=== PATIENT | female | born 1995 | race American Indian/Alaskan Native ===

== ENCOUNTER 2017-11-03 18:01 | Emergency (ER) | payer OTHER, MEDICAID ==
[2017-11-03 18:26] VITALS: BP 110/72
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
[2017-11-04] MEDS ORDERED: MOTRIN PO ONE (00:11)
== END 2017-11-04 00:29 | disposition home or self-care (01) ==
LOC: ED 18:01
DX: S46.812A Strain of other muscles, fascia and tendons at shoulder and upper arm level, left arm, initial encounter (principal); S39.012A Strain of muscle, fascia and tendon of lower back, initial encounter; V49.49XA Driver injured in collision with other motor vehicles in traffic accident, initial encounter; Y93.89 Activity, other specified; Y92.89 Other specified places as the place of occurrence of the external cause; Y99.8 Other external cause status
CPT/HCPCS: 99282

== ENCOUNTER 2018-05-26 14:17 | Emergency (ER) | payer SELFPAY ==
[2018-05-26 14:48] VITALS: BP 111/78
[2018-05-26 15:50] LABS: HCG Qualitative,Urine Negative (Negative)
[2018-05-26] MEDS ORDERED: ZOFRAN ODT PO ONE (16:49)
[2018-05-26] MEDS ORDERED: ULTRAM PO ONE (16:49)
--- NOTE | 2018-05-26 16:55 | Emergency Department Report ---
ED Headache HPI - General Chief Complaint: Headache Stated Complaint: SEVERE HEADACHE Time Seen by Provider: 05/26/18 16:30 Source: patient - History of Present Illness Initial Comments: Patient is 22 years old female with no significant past medical history. Patient present to the ER complaining of headache for the last 2 weeks. Patient describes her headache as global, throbbing. Patient denied any fever, chills or neck pain. No weakness numbness or tingling sensation. Timing/Duration: 1 week (two weeks) Quality: moderate Head Injury Location: global Recent Head Trauma: no recent headache/trauma Modifying Factors: worse with: cold therapy, exposure to light, immobilization, medication, movement, rest, other Associated Symptoms: nausea/vomiting. denies: denies symptoms, confusion, fatigue, facial pain, fever/chills, flushing, loss of consciousness, nasal congestion, nasal drainage, numbness in legs/feet, rash, seizures, sinus infection, stiff neck, vision changes, weakness, other Allergies/Adverse Reactions: Allergies No Known Allergies Allergy (Verified 05/26/18 14:43) Home Medications: Ambulatory Orders Cyclobenzaprine [Flexeril] 10 mg PO BID PRN #20 tablet 11/04/17 Naproxen [Naprosyn] 500 mg PO BID PRN #30 tablet 11/04/17 ED Review of Systems ROS: Stated complaint: SEVERE HEADACHE Other details as noted in HPI Comment: All other systems reviewed and negative Constitutional: denies: chills, fever Respiratory: denies: cough, orthopnea, shortness of breath, SOB with exertion, SOB at rest Cardiovascular: denies: chest pain, palpitations, dyspnea on exertion, orthopnea Gastrointestinal: abdominal pain. denies: nausea, vomiting Genitourinary: denies: urgency, dysuria, frequency, hematuria, discharge, abnormal menses Musculoskeletal: denies: back pain Neurological: denies: headache, weakness, numbness, paresthesias, confusion, abnormal gait ED Past Medical Hx - Past Medical History Previous Medical History?: No - Surgical History Past Surgical History?: Yes Additional Surgical History: c section - Social History Smoking Status: Never Smoker Substance Use Type: Alcohol - Medications Home Medications: Home Medications Medication Instructions Recorded Confirmed Last Taken Type Cyclobenzaprine [Flexeril] 10 mg PO BID PRN #20 tablet 11/04/17 Unknown Rx Naproxen [Naprosyn] 500 mg PO BID PRN #30 tablet 11/04/17 Unknown Rx ED Physical Exam - General Limitations: No Limitations General appearance: alert, in no apparent distress - Head Head exam: Present: atraumatic, normocephalic, normal inspection - ENT ENT exam: Present: normal exam, normal orophraynx, mucous membranes moist - Neck Neck exam: Present: normal inspection, full ROM. Absent: tenderness, meningismus, lymphadenopathy, thyromegaly - Respiratory Respiratory exam: Present: normal lung sounds bilaterally. Absent: respiratory distress, wheezes, rales, rhonchi, chest wall tenderness, accessory muscle use, decreased breath sounds, prolonged expiratory - Cardiovascular Cardiovascular Exam: Present: regular rate, normal rhythm, normal heart sounds. Absent: bradycardia, tachycardia, irregular rhythm - GI/Abdominal GI/Abdominal exam: Present: soft, normal bowel sounds. Absent: distended, tenderness, guarding, rebound, rigid, organomegaly, mass, bruit, pulsatile mass , hernia - Extremities Exam Extremities exam: Present: normal inspection, full ROM, normal capillary refill - Back Exam Back exam: Present: normal inspection, full ROM. Absent: tenderness, CVA tenderness (R), CVA tenderness (L), muscle spasm, paraspinal tenderness, vertebral tenderness - Neurological Exam Neurological exam: Present: alert, oriented X3, CN II-XII intact, normal gait, reflexes normal - Skin Skin exam: Present: warm, intact, normal color ED Course Vital Signs 05/26/18 05/26/18 14:43 17:11 Temperature 98.6 F Pulse Rate 73 Respiratory 16 18 Rate Blood Pressure 111/78 O2 Sat by Pulse 96 Oximetry ED Medical Decision Making - Radiology Data Radiology results: report reviewed Referring Physician: URBANO CALVIN Patient Name: CATHY LARA Date of : 1995 Sex: Female Report Date: 2018-05-26 Report Status: Finalized Findings [address] [address] Cat Scan Report Signed Patient: CATHY LARA MR#: [id number] : 1995 Acct:[id number] Age/Sex: 22 / F ADM Date: 05/26/18 Loc: ED Attending Dr: Ordering Physician: URBANO CALVIN Date of Service: 05/26/18 Procedure(s): CT head/brain wo con Accession Number(s): [id number] cc: URBANO CALVIN FINAL REPORT EXAM: CT HEAD/BRAIN WO CON HISTORY: headache TECHNIQUE: Standard unenhanced CT of the head at 5.0 millimeter axial increments. PRIORS: None. FINDINGS: The ventricular system is normal in size and configuration. There is no evidence for parenchymal volume loss. There is no evidence for mass lesion, mass effect, midline shift, acute intracranial hemorrhage, or acute ischemia/ infarction. No evidence for acute skull fracture is seen. No abnormality in the overlying scalp soft tissues is seen. Visualized paranasal sinuses demonstrates opacification of the right maxillary sinus. IMPRESSION: Opacification of the right maxillary sinus.. No acute intracranial process noted. Transcribed By: [facility] Dictated By: DEBORA CORONEL MD Electronically Authenticated By: DEBORA CORONEL MD Signed Date/Time: 05/26/181729 DD/ 29 TD/TT: 05/26/181729 Critical care attestation.: If time is entered above; I have spent that time in minutes in the direct care of this critically ill patient, excluding procedure time. ED Disposition Clinical Impression: Headache, Sinusitis Disposition: DC-01 TO HOME OR SELFCARE Is pt being admited?: No Condition: Stable Instructions: Acute Headache (ED), Acute Bacterial Rhinosinusitis (ED) Referrals: PRIMARY CAREMD [Primary Care Provider] - 3-5 Days
[2018-05-26 17:05] LABS: Bilirubin,Urine NEG (Negative); Blood,Urine NEG (Negative); Color,Urine Yellow (Yellow); Mucus,Urine FEW /HPF; Protein,Urine <15 mg/dL mg/dL (Negative)
--- NOTE | 2018-05-26 17:34 | Cat Scan Report ---
FINAL REPORT EXAM: CT HEAD/BRAIN WO CON HISTORY: headache TECHNIQUE: Standard unenhanced CT of the head at 5.0 millimeter axial increments. PRIORS: None. FINDINGS: The ventricular system is normal in size and configuration. There is no evidence for parenchymal volume loss. There is no evidence for mass lesion, mass effect, midline shift, acute intracranial hemorrhage, or acute ischemia/ infarction. No evidence for acute skull fracture is seen. No abnormality in the overlying scalp soft tissues is seen. Visualized paranasal sinuses demonstrates opacification of the right maxillary sinus. IMPRESSION: Opacification of the right maxillary sinus.. No acute intracranial process noted.
== END 2018-05-26 18:25 | disposition home or self-care (01) ==
LOC: ED 14:17
DX: J32.0 Chronic maxillary sinusitis (principal)
CPT/HCPCS: 70450; 81001; 81025; 99284; Q0162